=== PATIENT | male | born 1980 | race Caucasian/White ===

== ENCOUNTER 2019-05-02 14:29 | Emergency (ER) | payer MEDICAID ==
[~2019-05-02] VITALS: Ht 170.2 cm; Wt 87.3 kg
[2019-05-02] MEDS ORDERED: TETanus/Pertussis (Acell)/Diphther VAC/PF (Tdap-Adult) 0.5ml syringe IMVAC ONE (14:45)
[2019-05-02 14:57] LABS: CLARITY,URINE CLEAR (Clear); COLOR,URINE YELLOW (Yellow); GLUCOSE, URINE NEGATIVE (Neg); KETONES,URINE NEGATIVE (Neg); LEUKOCYTE ESTERASE ,URINE NEGATIVE (Neg); NITRITES, URINE NEGATIVE (Neg); OCCULT BLOOD,URINE MODERATE (Neg); PROTEIN,URINE NEGATIVE (Neg); UROBILINOGEN,URINE 0.2 E.U/dL (0.2-1.0)
[2019-05-02 14:58] LABS: UA COLLECTION TYPE VOIDED
[2019-05-02 15:02] LABS: MUCUS STRANDS MODERATE /LPF (Neg); SQUAMOUS EPITHELIAL CELL,UR FEW /LPF (FEW)
[2019-05-02 15:03] LABS: BACTERIA,URINE 1+ /HPF (Neg); WBC,URINE 0-4 /HPF (0-4)
[2019-05-02 15:16] LABS: BASOPHILS # (AUTO) 0.1 X10'3 (0-0.2); EOSINOPHILS # (AUTO) 0.2 X10'3 (0-0.9); EOSINOPHILS % (AUTO) 2.8 % (0-6); HEMATOCRIT 44.6 % (42.0-52.0); HEMOGLOBIN 15.2 g/dl (14.0-17.9); LYMPHOCYTES # (AUTO) 1.3 X10'3 (1.1-4.8); LYMPHOCYTES % (AUTO) 15.5 % (21-51); MEAN CORPUSCULAR HEMOGLOBIN 30.4 PG (27.0-31.0); MEAN CORPUSCULAR VOLUME 89.2 FL (78-98); MEAN PLATELET VOLUME 6.6 FL (7.4-10.4); MONOCYTES # (AUTO) 0.4 X10'3 (0-0.9); MONOCYTES % (AUTO) 5.2 % (2-12); NEUTROPHILS # (AUTO) 6.2 X10'3 (1.8-7.7); NEUTROPHILS % (AUTO) 75.5 % (42-75); PLATELET COUNT 246 X10'3 (140-440); RED BLOOD COUNT 4.99 X10'6 (4.70-6.10); RED CELL DISTRIBUTION WIDTH 12.9 % (11.5-14.5); WHITE BLOOD COUNT 8.3 X10'3 (4.5-11.0)
[2019-05-02 15:28] LABS: ALANINE AMINOTRANSFERASE 33 U/L (12-78); ALBUMIN 3.5 G/DL (3.4-5.0); ALBUMIN/GLOBULIN RATIO 1.1 (1.1-1.5); ALKALINE PHOSPHATASE 76 IU/L (46-116); ANION GAP 5 (8-16); ASPARTATE AMINO TRANSFERASE 24 U/L (10-37); BILIRUBIN,TOTAL 0.3 MG/DL (0.1-1.0); BLOOD UREA NITROGEN 16 MG/DL (7-18); CALCIUM 8.5 MG/DL (8.5-10.1); CHLORIDE 108 MMOL/L (99-107); CREATININE 1.14 MG/DL (0.60-1.10); GLUCOSE 95 MG/DL (70-104); POTASSIUM 4.3 MMOL/L (3.5-5.1); SODIUM 143 MMOL/L (135-145); TOTAL PROTEIN 6.8 G/DL (6.4-8.2); eGFR 72 ML/MIN
[2019-05-02 15:39] LABS: ETHANOL < 0.010 GM/DL (0.0-0.010)
[2019-05-02] MEDS ORDERED: NO HOME MEDS (15:49)
[2019-05-02] MEDS ORDERED: LORazepam 1 MG tablet PO ONE (15:55)
--- NOTE | 2019-05-02 15:56 | NUR ---
RELIEVING RN FOR BREAK, [employer] REPRESENT[employer]IVE AT BEDSIDE
[2019-05-02 15:58] LABS: ACETAMINOPHEN < 2.0 UG/ML (10-30)
[2019-05-02 16:08] LABS: URINE AMPHETAMINE SCREEN POSITIVE (Neg); URINE BARBITUATE SCREEN NEGATIVE (Neg); URINE BENZODIAZEPINES SCREEN NEGATIVE (Neg); URINE CANNABINOID SCREEN NEGATIVE (Neg); URINE COCAINE SCREEN NEGATIVE (Neg); URINE METHADONE SCREEN NEGATIVE (Neg); URINE OPIATE SCREEN NEGATIVE (Neg); URINE PHENCYCLIDINE SCREEN NEGATIVE (Neg)
--- NOTE | 2019-05-02 16:21 | NUR ---
PACKET FAXED TO [facility] OFFICE
--- NOTE | 2019-05-02 16:32 | NUR ---
PT SLEEPING ON RIGHT SIDE, PT RESPIRATIONS SPONTANEOUS, EVEN AND UNLABORED, NO S/S OF DISTRESS, DISCOMFORT, OR AGITATION AT THIS TIME, PT IN LINE OF SITE OF NURSES STATION
--- NOTE | 2019-05-02 18:00 | NUR ---
[facility] AT BEDSIDE FOR EVALUATION OF PT NOW
--- NOTE | 2019-05-02 19:19 | NUR ---
PT SLEEPING IN THE RIGHT SIDE. RESPIRATIONS ARE EVEN AND UNLABORED. APPEARS TO BE IN NO DISTRESS. PT IS COVERED FROM HEAD TO TOE IN BLANKETS. PT IS IN LINE OF SIGHT FROM NURSE'S STATION. [facility] REPORTED HE WAS GOING TO STAY ON THE 5150 HOLD UNTIL PLACEMENT IS FOUND FOR HIM.
--- NOTE | 2019-05-02 20:09 | NUR ---
PT IS LAYWING IN HIS BED IN SUPINE POSITION. C/O OF PAIN IN HIS RIBS AND CHEST. STATES THAT HE FEELS "CLOWDY". ADVISED THAT IT MIGHT ME FROM MEDICATION THAT WAS ADMINISTERED (ATIVAN). PT ALSO COMPLAIND OF HAVING DIFFICULTY FALLING ASLEEP.
[2019-05-02] MEDS ORDERED: temazepam 15mg capsule PO PRN (20:35)
--- NOTE | 2019-05-02 20:35 | NUR ---
OBTAINED NEW PRESCRIPTION FOR RESTORIL FROM DR LEDBETTER. HOLDING DOSE PT IS NOT HAVING ANY DIFFICULTY SLEEPING AT THE MOMENT.
--- NOTE | 2019-05-02 22:06 | NUR ---
PT IS SLEEPING IN SUPINE POSITION. RESPIRATIONS ARE EVEN AND UNLABORED. APPEARS TO BE IN NO DISTRESS.
--- NOTE | 2019-05-03 00:13 | NUR ---
PT IS SLEEPING IN SUPINE POSITION. RESPIRATIONS ARE SPONTANIOUS AND UNLABORED. APPEARS TO BE IN NO DISTRESS
--- NOTE | 2019-05-03 02:38 | NUR ---
PT AMBULATED TO BATHROOM. CURRENTLY SITTING UP, AWAKE. RESPIRATIONS ARE EVEN AND UNLABORED. DOES NOT APPEAR TO BE IN ANY DISTRESS.
--- NOTE | 2019-05-03 05:15 | NUR ---
PT APPEARS TO BE SLEEPING IN SUPINE POSITION. APPEARS TO BE IN NO DISTRESS.
[2019-05-03 06:01] VITALS: BP 108/66
--- NOTE | 2019-05-03 06:41 | NUR ---
Patient reclining in bed. No distress observed. Continue to monitor.
[2019-05-03] MEDS ORDERED: hydrOXYzine 25 MG tablet PO PRN (06:50)
--- NOTE | 2019-05-03 06:56 | NUR ---
Patient started knocking constantly on his side rail. RN aske Dr Goode for Atarax for patient and given. Continue to monitor.
--- NOTE | 2019-05-03 08:06 | NUR ---
Patient sleeping on right side. No distress observed. Continue to monitor.
--- NOTE | 2019-05-03 08:20 | NUR ---
Patient is sitting up and eating. No distress observed. Continue to monitor.
--- NOTE | 2019-05-03 10:37 | NUR ---
Patient is sleeping supine. No distress observed. Continue to monitor.
--- NOTE | 2019-05-03 11:41 | NUR ---
Breaking primary RN, pt is ;ayinmg on his left side, eyes closed regular breathing present, no s/s of agitation observed
== END 2019-05-03 12:58 ==
LOC: ER 14:29
DX: S31.113A Laceration without foreign body of abdominal wall, right lower quadrant without penetration into peritoneal cavity, initial encounter (principal); F10.99 Alcohol use, unspecified with unspecified alcohol-induced disorder; W26.0XXA Contact with knife, initial encounter; Y93.89 Activity, other specified; Y92.89 Other specified places as the place of occurrence of the external cause; Y99.8 Other external cause status; Y90.9 Presence of alcohol in blood, level not specified; R94.6 Abnormal results of thyroid function studies
CPT/HCPCS: 12001; 36415; 71045; 80053; 80305; 80320; 80329; 81001; 84443; 85025; 90471; 90715; 93005; 99285; Z7610